=== PATIENT | male | born 1940 ===

== ENCOUNTER 2017-01-11 11:21 | Emergency (ER) | payer MEDICARE ==
[2017-01-11 11:57] VITALS: BP 135/76
--- NOTE | 2017-01-11 16:56 | EDM.PDOC ---
ED HPI GENERAL MEDICAL PROBLEM - General Chief Complaint: General Stated Complaint: NOSE BLEED/ON BLOOD THINNER Time Seen by Provider: 01/11/17 11:30 Source of Information: Reports: Patient History Limitations: Reports: No limitations - History of Present Illness INITIAL COMMENTS - FREE TEXT/NARRATIVE: This is a 76yo M with recurrent nose bleed and recent cauterization by ENT of the left nostril a week or two ago. Patient has another cauterization of the right nostril scheduled. He started having a left nose bleed for over an hour and came into the ER. His nose bleed stopped after 10 minutes resting in the ER. It began a little bit when he went to the bathroom. Onset: sudden Duration: Hour(s):, Improving Location: Reports: other (nose left side anterior) Severity: mild Improves with: Reports: None Worsens with: Reports: None Associated Symptoms: Reports: denies other symptoms - Related Data Allergies Allergy/AdvReac Type Severity Reaction Status Date / Time No Known Allergies Allergy Verified 01/11/17 11:36 ED ROS GENERAL - Review of Systems Review Of Systems: ROS reveals no pertinent complaints other than HPI. ED EXAM, GENERAL - Physical Exam Exam: See Below Exam Limited By: No limitations General Appearance: alert, WD/WN, no apparent distress Eye Exam: bilateral eye: EOMI, PERRL Ears: normal external exam Nose: normal inspection, other (blood from the left nare; can see patches of clotted areas in the nose) Throat/Mouth: Normal inspection Head: atraumatic, normocephalic Neck: normal inspection Respiratory/Chest: no respiratory distress, lungs clear, normal breath sounds Cardiovascular: normal peripheral pulses, regular rate, rhythm Course - Vital Signs Last Recorded V/S: Last Vital Signs Temp 36.8 C 01/11/17 11:22 Pulse 60 01/11/17 11:22 Resp 18 01/11/17 11:22 BP 135/76 01/11/17 11:22 Pulse Ox 100 01/11/17 11:22 - Re-Assessments/Exams Free Text/Narrative Re-Assessment/Exam: Use silver nitrate to cauterize areas observed to ooze. Good hemostasis acheived and patient able to walk and lean without recurrent nose bleed. Departure - Departure Time of Disposition: 12:30 Disposition: Home, Self-Care 01 Condition: good Clinical Impression: Bleeding nose Instructions: Nosebleed, [id number] Referrals: PCP,None [Primary Care Provider] - Forms: ED Department Discharge Additional Instructions: Follow up with ENT specialist. If you have any questions or concerns please call us at [phone]. - Problem List Review Problem List Initiated/Reviewed/Updated: Yes - Assessment/Plan Plan: Counseled on close monitoring, supportive care and f/u with ENT as scheduled or as needed if worsening symptoms. Patient to take things easy until that time. Patient left with good hemostasis and counseled on conservative care. Vaseline and gauze supplied for as needed basis.
== END 2017-01-11 12:05 | disposition home or self-care (01) ==
LOC: LB.ED 11:21
DX: R04.0 Epistaxis (principal)
CPT/HCPCS: 30901; 99282; 99283